=== PATIENT | female | born 1990 | race Caucasian/White ===

== ENCOUNTER 2021-03-08 10:41 | Emergency (ER) | payer OTHER ==
[2021-03-08] MEDS ORDERED: BACTRIM DS TAB1 EACH PO (11:53)
[2021-03-08] MEDS ORDERED: DIFLUCAN150 MG PO (12:11)
== END 2021-03-08 12:02 | disposition home or self-care (01) ==
LOC: FER 10:41
DX: L02.416 Cutaneous abscess of left lower limb (principal); E10.9 Type 1 diabetes mellitus without complications; F17.210 Nicotine dependence, cigarettes, uncomplicated
CPT/HCPCS: 87070; 87077; 87186; 87205